=== PATIENT | female | born 1955 | race Caucasian/White ===

== ENCOUNTER 2022-02-27 12:22 | Day surgery (SDC) | payer MEDICARE ==
[~2022-02-27 12:22] MED LIST: SODIUM CHLORIDE 0.9% 1,000 ML IV SCH
[2022-02-27] MEDS ORDERED: SODIUM CHLORIDE 0.9% 1,000 ML IV ONE ×2 (15:15→15:45)
[2022-02-27] MEDS ORDERED: SODIUM CHLORIDE 0.9% 500 ML 500 ML IV ONE (15:17)
[2022-02-27] MEDS ORDERED: HEPARIN SODIUM 1,000 UN/ML (10ML VL) IVP STA (16:17)
[2022-02-27] MEDS ORDERED: FLECAINIDE 50 MG TAB PO STA (16:19)
[2022-02-27] MEDS ORDERED: HEPARIN SODIUM,PORCINE/PF 5,000 UNIT/0.5 ML SYRINGE SQ ONE (16:23)
[2022-02-27 16:35] LABS: Basophils # (A) 0.1 k/uL (0-0.2); Basophils % (A) 1 %; Eosinophils # (A) 0.1 k/uL (0-0.7); Eosinophils % (A) 2 %; HGB 11.5 gm/dL (11.4-16.0); Hypochromasia Slight; Lymphocytes # (A) 1.6 k/uL (1.0-4.8); Lymphocytes % (A) 26 %; MCH 27.5 pg (25.0-35.0); MCV 83.4 fL (80.0-100.0); Mean Platelet Volume 8.3; Monocytes # (A) 0.4 k/uL (0-1.0); Monocytes % (A) 6 %; Neutrophils # (A) 3.9 k/uL (1.3-7.7); Neutrophils % (A) 64 %; Platelet Count 206 k/uL (150-450); RDW 13.5 % (11.5-15.5); WBC 6.1 k/uL (3.8-10.6)
[2022-02-27 16:46] LABS: ALT 19 U/L (4-34); AST 27 U/L (14-36); African American GFR (CKD) >90 (>60 ml/min/1.73 sqM); Alkaline Phosphatase 74 U/L (38-126); Anion Gap 7 mmol/L; Blood Urea Nitrogen 18 mg/dL (7-17); Calcium 8.6 mg/dL (8.4-10.2); Carbon Dioxide 23 mmol/L (22-30); Chloride 109 mmol/L (98-107); Glucose 92 mg/dL (74-99); Non-African American GFR(CKD) 88 (>60 ml/min/1.73 sqM); Potassium 3.7 mmol/L (3.5-5.1); Sodium 139 mmol/L (137-145); Total Bilirubin 0.3 mg/dL (0.2-1.3); Total Protein 6.2 g/dL (6.3-8.2)
[2022-02-27] MEDS: METOPROLOL TARTRATE 50 MG TAB PO SCH ×2 (16:49→19:58)
[2022-02-27] MEDS: APIXABAN 5 MG TAB PO SCH ×2 (16:49→23:52)
--- NOTE | 2022-02-27 16:56 | P.EPCON ---
Electrophysiology Consult - EP Consult Electrophysiology Consult: Please see Dr. Omer's H&P for admission note. Patient's primary care physician is Dr. Becker This is Dr. Thompson dictating a consult on this patient The patient was interviewed and examined IMPRESSION / ASSESSMENT: Patient was brought in for tilt table test initially as an outpatient, referred by Dr. Ramirez for syncope evaluation To is the end of the tilt table test she went into atrial fibrillation with RVR The onset of atrial fibrillation associated with feeling dizzy and nauseous and she passed out At that time, blood pressure was around 80 mmHg systolic and the heart rate was 122 beats a minute Symptomatic paroxysmal atrial fibrillation with RVR with associated syncope Patient has syncope at the onset of atrial fibrillation with RVR 3 episodes of syncope associated with palpitations JONO VASC score is 2 Known paroxysmal atrial fibrillation structurally normal heart Normal LV systolic function without any significant valvular abnormalities Normal myocardial perfusion in November Normal heart rates during sinus rhythm Normal twelve-lead EKG at baseline with normal DC narrow QRS normal ST segments PLAN: She has had at least 3 syncopal spells This time onset of syncope was with A. fib with RVR with associated hypertension She remains in atrial fibrillation with RVR and does not feel well now I will start her on anticoagulation prior to any treatment initiation Flecainide 100 mg by mouth 1, 1 dose of IV heparin 5000 units Start Eliquis 5 mg twice daily Start rate control medications, metoprolol 50 g twice daily Admitted to the hospital until she spontaneously cardioverted to sinus rhythm Consideration for A. fib ablation and hence I'm starting her on anticoagulation at this time I will maintain flecainide 100 mg twice daily until then HPI Patient was brought in for tilt table test To is the end of the tilt table test she started feeling dizzy and nauseous and her blood pressure was 100 mmHg systolic Subsequently she went to atrial fibrillation with RVR with a drop in blood pressure She remains in atrial fibrillation with RVR and does not feel well and hence is being admitted to the hospital I'm initiating anticoagulation and flecainide No history of hypertension dyslipidemia and diabetes stroke no CHF no current myopathy JONO VASC score 2, female gender and age of 65 ROS: No fever chills or rigors, no cough, phlegm or expectoration, no nausea, vomiting or diarrhea, no hematuria, dysuria, no musculoskeletal complaints, no strokes or seizures, no skin lesions. EXAMINATION: On examination her blood pressure in the supine position is 137/74 mmHg pulse rate of around 114 beats a minute irregular Breath sounds are clear no rhonchi no crackles Normal heart sounds but irregular no murmurs Abdomen is soft REVIEW OF LABS, ECG & MEDICAL DATA Normal white count was 6.1, hemoglobin 11.5 normal platelet count Normal electrolytes sodium 139 potassium 3.7 Creatinine 0.7 TSH pending
--- NOTE | 2022-02-27 17:03 | P.EPPROC ---
- EP Procedure Note Electrophysiology Procedure Note: Diagnosis Recurrent syncope Twelve-lead EKG showed in sinus rhythm shows normal [place] narrow QRS normal ST segments normal QT interval Tilt table test per protocol Baseline blood pressure 134/82 mmHg Baseline heart rate 62 beats a minute Patient was tilted upright at an angle of 70 per protocol She was asymptomatic through most of the test After 30 minutes she started to feel nauseous and dizzy there was a dip in her blood pressure at that time and then she went into atrial fibrillation Her blood pressure at that time was around 80 mmHg systolic heart rate is 122 beats a minute Atrial fibrillation was confirmed on telemetry strips and then on the twelve- lead EKG Impression Vasovagal syncope with associated vagally mediated atrial fibrillation Patient has syncope at the onset of atrial fibrillation with RVR However her heart rates are around 120 222 beats a minute at that time No bradycardia no pauses at the onset
[2022-02-27] MEDS: FLECAINIDE 50 MG TAB PO SCH (19:58)
[2022-02-27] MEDS ORDERED: ZOLPIDEM 5 MG TAB PO PRN (20:01)
[2022-02-28] MEDS ORDERED: LEVOTHYROXINE 75 MCG TAB PO SCH (06:30)
[2022-02-28 08:35] VITALS: RESP 17; TEMP 98.9
[2022-02-28] MEDS: FLECAINIDE 50 MG TAB PO SCH (09:21)
[2022-02-28] MEDS: APIXABAN 5 MG TAB PO SCH (09:21)
[2022-02-28] MEDS: METOPROLOL TARTRATE 50 MG TAB PO SCH (09:43)
[2022-02-28 11:27] VITALS: BP 120/74; PULSE 56
--- NOTE | 2022-02-28 23:18 | DS ---
DISCHARGE SUMMARY HOSPITAL COURSE: A 66-year-old lady with a history of recurrent vasovagal syncope, who was sent for a tilt-table test and during that tilt study, had an episode of atrial fibrillation and had a vasovagal event very similar to her baseline events. The plan at this stage is to treat her with flecainide, Eliquis, continue the metoprolol that she is on, and consider atrial fibrillation ablation over the next 2 months. OBJECTIVE: GENERAL: She is comfortable at rest. VITAL SIGNS: Stable. There is no jugular venous distention. CHEST: Reveals good air entry bilaterally. HEART: Reveals first and second heart sounds. No gallop. EXTREMITIES: Did not reveal any edema. Peripheral pulses are felt. EKG shows sinus rhythm, normal axis, normal intervals. Condition at the time of discharge is as described above. MEDICATIONS ON DISCHARGE: Include, 1. Lopressor 50 b.i.d. 2. Tambocor 100 b.i.d. 3. Eliquis 5 b.i.d. 4. Prilosec. 5. Levothyroxine. FOLLOWUP: The patient will be followed up in my office in 3 weeks' time. MMODL / IJN: [id number] /
== END 2022-02-28 12:14 | disposition home or self-care (01) ==
LOC: CATHEP 12:22 → 3SCARD 16:28 → CATHEP 02-28 12:14
PROVIDERS: ATTEND Internal Medicine Clinical Cardiac Electrophysiology
DX: I48.0 Paroxysmal atrial fibrillation (principal); I44.7 Left bundle-branch block, unspecified; U09.9 Post COVID-19 condition, unspecified; Z79.899 Other long term (current) drug therapy; Z82.49 Family history of ischemic heart disease and other diseases of the circulatory system
CPT/HCPCS: 93660; 80053; 84443; 85025; J1644

== ENCOUNTER → 2022-03-31 | Outpatient (CLI) | payer MEDICARE ==
[2022-03-31 17:53] LABS: HCT 37.6 % (37.2-46.3); HGB 11.5 g/dL (12.0-15.0); MCH 25.4 pg (27.0-32.0); MCHC 30.6 g/dL (32.0-37.0); Mean Platelet Volume 10.7 fL (9.5-12.2); NRBC Per 100 WBC 0 /100 WBCS (0.0-0.0); Platelet Count 262 X 10*3/uL (140-440); RBC 4.53 X 10*6/uL (4.10-5.20); RDW 13.9 % (11.5-14.5); WBC 5.71 X 10*3/uL (4.50-10.00)
[2022-03-31 18:00] LABS: African American GFR (CKD) 74.2 (60.0-200.0); Anion Gap 9.1 mmol/L (10.00-18.00); Blood Urea Nitrogen 17.7 mg/dL (9.0-27.0); Carbon Dioxide 27.7 mmol/L (20.0-27.5); Potassium 4.2 mmol/L (3.5-5.5)
== END | disposition home or self-care (01) ==
LOC: LABPAT 13:10
PROVIDERS: ATTEND Internal Medicine Clinical Cardiac Electrophysiology
DX: Z01.812 Encounter for preprocedural laboratory examination (principal); I48.0 Paroxysmal atrial fibrillation; R55 Syncope and collapse
CPT/HCPCS: 36415; 80051; 82565; 84520; 85027

== ENCOUNTER 2022-04-03 10:14 | Day surgery (SDC) | payer MEDICARE ==
[2022-03-31 11:49] VITALS: BMI 32.3
[~2022-04-03 10:14] MED LIST changes: +LACTATED RINGERS 1,000 ML IV SCH
[2022-04-03] MEDS ORDERED: HEPARIN SODIUM,PORCINE 10,000 UNIT/ML 1 ML VIAL ONE (14:54)
[2022-04-03] MEDS ORDERED: ISOPROTERENOL 250 MCG/1.25 ML SYR IV ONE (14:54)
[2022-04-03] MEDS ORDERED: PROPOFOL 10 MG/ML 20 ML VIAL IV ONE (14:54)
[2022-04-03] MEDS ORDERED: PHENYLEPHRINE-0.9% NACL SYG 1,000 MCG/10 ML SYRINGE ONE (14:54)
[2022-04-03] MEDS ORDERED: ONDANSETRON 4 MG/2 ML VIAL ONE (14:54)
[2022-04-03] MEDS ORDERED: MIDAZOLAM 2 MG/2 ML VIAL ONE (14:54)
[2022-04-03] MEDS ORDERED: fentaNYL (PF) 50 MCG/ML 2 ML AMP ONE (14:54)
[2022-04-03] MEDS ORDERED: DEXAMETHASONE SOD PHOSPHATE 10 MG/ML 1 ML VIAL ONE (14:54)
[2022-04-03] MEDS ORDERED: SUCCINYLCHOLINE CHLORIDE 200 MG/10 ML VIAL IV ONE (14:54)
--- NOTE | 2022-04-03 14:58 | P.HPCAR ---
History of Present Illness This is Dr. Thompson dictating an H/P on this patient The patient was interviewed and examined IMPRESSION / ASSESSMENT: Recurrent atrial fibrillation, paroxysmal associated with vasovagal spells A. fib RVR, vagally mediated Recurrent syncope JONO VASC who is to Normal LV function on 2-D echo PLAN: Pulmonary vein isolation/A. fib ablation/septal ablation along the SVC and the right atrium Continue ELIQUIS HPI Patient is stable from a cardiac vascular standpoint. She's had no further episodes of atrial fibrillation in the last 2-3 weeks as of syncope She does get palpitations but these are brief, in the last few weeks ROS: No fever chills or rigors, no cough, phlegm or expectoration, no nausea, vomiting or diarrhea, no hematuria, dysuria, no musculoskeletal complaints, no strokes or seizures, no skin lesions. EXAMINATION: Pulse rate in the 60s and 70s Blood pressure 120/74 mmHg No JVD and no current bruits Normal heart sounds normal S1 normal S2 Clear lungs no rhonchi no crackles Normal extremity edema Soft abdomen nontender REVIEW OF LABS, ECG & MEDICAL DATA twelve-lead EKG shows sinus mechanism normal [place] mammograms normal ST segments hematocrit 37.6 Normal sodium and potassium Normal renal function creatinine 0.9 Normal TSH Past Medical History Past Medical History: Atrial Fibrillation, GERD/Reflux, Syncope, Thyroid Disorder Additional Past Medical History / Comment(s): Barretts esophagus., covid 12/24/21. passed out and stopped breathing for brief period per pt 02/14/22., See Cardiology H & P. History of Any Multi-Drug Resistant Organisms: None Reported Past Surgical History: Appendectomy, Section, Hernia Repair, Hysterectomy, Joint Replacement, Tonsillectomy Additional Past Surgical History / Comment(s): lt knee replacement, thyroid removed., uterine fibroids removed., umbilical hernia repair. ,arthroscopic procedure on both knees, Thyroidectomy (goiter) Past Anesthesia/Blood Transfusion Reactions: No Reported Reaction Additional Past Anesthesia/Blood Transfusion Reaction / Comment(s): no blood transfusions Past Psychological History: Anxiety Smoking Status: Never smoker Past Alcohol Use History: Occasional Additional Drug Use History / Comment(s): past gummie use pt aware not to use 24 hrs before procedure. - Past Family History Mother Additional Family Medical History / Comment(s): vascular stroke. at 60yrs. smoker, dementia Father Additional Family Medical History / Comment(s): parkinsons, alzheimer Results Current Medications Generic Name Dose Route Start Last Admin Trade Name Freq PRN Reason Stop Dose Admin Lactated Ringer's 1,000 mls @ 20 mls/hr 04/03/22 05:57 Lactated Ringers IV 05/03/22 05:58 .Q24H ROSANGELA Sodium Chloride 1,000 mls @ 20 mls/hr 04/03/22 05:57 04/03/22 10:43 Saline 0.9% IV 05/03/22 05:58 0 mls .Q24H ROSANGELA Administration
[2022-04-03] MEDS ORDERED: HEPARIN SOD,PORK IN 0.45% NACL 25,000 UNIT in 0.45% NACL 1 250ML.BAG IV ONE (15:30)
[2022-04-03] MEDS ORDERED: HEPARIN SODIUM (1,000 UNIT/ML) 1,000 UNIT in SODIUM CHLORIDE 0.9% 1,000 ML IRRIGATION ONE (15:31)
[2022-04-03] MEDS ORDERED: LIDOCAINE 1% INJ 10MG/ML (30 ML VIAL-PF) SQ ONE (15:39)
[2022-04-03] MEDS ORDERED: LACTATED RINGERS 1,000 ML IV ONE (18:00)
--- NOTE | 2022-04-03 19:39 | P.EPPROC ---
- EP Procedure Note Electrophysiology Procedure Note: Extended procedure duration Ablation of arrhythmia focus in the low SVC/upper right atrial septum on the septal aspect with good contact force and power and troponins impedance Successful isolation of all pulmonary veins. The arrhythmogenic vein appeared to be the left-sided veins on the left superior Short bursts of atrial fibrillation associated with pauses during or after cryoablation of the right superior. This was a 92nd lesion because of esophageal coaling Cryoablation was performed once again and thereafter no atrial fibrillation was induced during thaw Common left-sided pulmonary veins with difficult angulation but finally a complete isolation of the common os Right superior pulmonary vein was large and multiple lesions were applied around the antrum with complete isolation Right inferior pulmonary vein was very posteriorly located and required multiple attempts at good positioning of the balloon Successfully isolated Patient had a right middle pulmonary vein that resulted in crosstalk between the right middle and the right superior pulmonary veins with dissociated signals These dissociated signals were completely isolated with a separate isolation of the right middle pulmonary vein At the end of the procedure all pulmonary veins were completely isolated the level The patient's IVC had a very posterior entry into the lower right atrium, directing US to is the septum Placement of intracardiac echo catheter was difficult on account of this angulation Patient's LV function is normal Pericardium over the left ventricle was thickened without effusion Transseptal catheterization was difficult on account of a very stiff in the atrial septum/fossa ovalis It took multiple attempts to pass the wires and sheaths across this thin but stiff fossa ovalis
--- NOTE | 2022-04-03 19:46 | P.EPPROC ---
- EP Procedure Note Electrophysiology Procedure Note: PROCEDURE A. fib ablation/PVI/SVC and right atrial septal ablation DIAGNOSIS Atrial fibrillation, symptomatic, refractory to therapy Vagally mediated atrial fibrillation Recurrent vasovagal syncope RESULT No left atrial appendage mass seen on intracardiac echo Mildly thickened pericardium over the left ventricle Successful A. fib ablation/pulmonary vein isolation of all veins using cryo- ablation Common left-sided veins, presence of a large right middle vein Complete entrance block in all 5 veins confirmed including right middle pulmonary vein Right atrial septal an SCC ablation with DC shortening noted, around 190 ms from a baseline of 206 ms No evidence for phrenic nerve injury Left sided pulmonary veins especially left superior pulmonary vein was the likely arrhythmogenic focus Esophageal deflection YES , extreme left-sided esophagus, very tortuous PROCEDURE DETAILS Patient was brought to the EP lab in a fasting state after obtaining written informed consent. Procedure performed under general anesthesia Esophagus was intubated. Esophageal temperature monitoring with circa catheter. Esophageal deflection with an endoscope to avoid hypothermia of the esophagus. After initial muscle relaxant use, muscle relaxants were not given thereafter in order to assess phrenic nerve during procedure. Patient prepped and draped as per protocol Cryo ablation-set up with standard preparation of the cryoablation tools done. Femoral Venous access obtained on the right and left groins and sheaths placed Diagnostic catheters for the high right atrium, phrenic nerve stimulation and pacing, His bundle, coronary sinus placed Intracardiac echo catheter placed. Long sheath placed in the right atrium Left and right transseptal catheterization performed under intracardiac echo guidance. Intravenous heparin with aCT above 300 Later, catheter positioning and balloon positioning in the left atrium and pulmonary veins, under intracardiac echo guidance Diagnostic EP study with coronary sinus pacing and recording Baseline measurements: Sinus cycle length Thursday rate 90 ms, DC interval 206 ms, QRS 97 ms and QT 373 ms Shortening of the DC interval noted during SVC/right atrial septal ablation AH interval 50 ms, HV interval 60 ms Sinus recovery times at 600, 504 100 ms were 1291, 1314 and 1417 ms Corrector sinus recovery times abnormal Burst stimulation was performed on Isuprel, high-dose AV node Wenckebach block on Isuprel less than 250 ms Transseptal catheterization performed RA pressure 11/3/7 LA pressure 21/6/13 Transseptal catheterization performed with standard sheath. The cryoablation sheath was then placed with an over the wire exchange without any acute complications. The cryoablation balloon was placed in the office of each pulmonary vein and all 4 pulmonary veins were isolated. IV dye was injected to confirm occlusion. Goal: achieve complete occlusion of the pulmonary vein, achieve -30 degrees C at 30 seconds and achieve -40 degrees C at 60 seconds and a time to effect of less than 60 seconds. If not, the balloon was repositioned to obtain this result After completion of Cryoblation with durations from 180-240 seconds, entrance block was confirmed with the Attain circular catheter in a roving fashion around the antrum of the pulmonary veins Phrenic nerve pacing was performed from the SVC, right innominate vein area and diaphragm voltage was monitored. Diaphragmatic contractions were also monitored manually for strength of contraction. At the end of the procedure the Achieve catheter was once again used to check for entrance block Phrenic nerve stimulation was performed to confirm diaphragmatic stimulation the end of the procedure Cine fluoroscopy was performed at the very end of the procedure to confirm movement of both diaphragms with inspiration and expiration At the end of the procedure the patient was extubated Venous sheaths were removed and hemostasis assured with a closure device PROCEDURES PERFORMED Diagnostic EP study CS pacing and recording Left and right transseptal catheterization Catheter the mapping of the tachycardia Intracardiac echocardiography Pulmonary vein isolation with transseptal and comprehensive EPS, [id number] Drug infusion, +[id number] Linear ablation, right atrium, +[id number] Extended procedure duration as described in separate note
--- NOTE | 2022-04-03 19:48 | P.PRLE ---
RE: Vandana Monaco Dear Ritchie Ross underwent successful AF ablation for vagally mediated atrial fibrillation She should continue anticoagulation for at least 3 months post ablation Thank you for entrusting me with the care of the patient Warm regards Sincerely Tyrone Thompson
[2022-04-03] MEDS ORDERED: ALPRAZolam 0.25 MG TAB PO PRN (19:49)
[2022-04-03] MEDS ORDERED: ACETAMINOPHEN TAB 325 MG TAB PO PRN (19:50)
[2022-04-03] MEDS ORDERED: ONDANSETRON 4 MG/2 ML VIAL IVP ONE (19:59)
[2022-04-03] MEDS ORDERED: ACETAMINOPHEN IV (For NPO) 1,000 MG in EMPTY BAG 1 BAG IVPB ONE (21:00)
[2022-04-03] MEDS: FLECAINIDE 50 MG TAB PO SCH (21:09)
[2022-04-03] MEDS: APIXABAN 5 MG TAB PO SCH (21:09)
[2022-04-04] MEDS ORDERED: LEVOTHYROXINE SODIUM 175 MCG PO SCH (06:30)
[2022-04-04] MEDS: PANTOPRAZOLE 40 MG TABLET PO SCH (09:38)
[2022-04-04] MEDS: FLECAINIDE 50 MG TAB PO SCH (09:38)
[2022-04-04] MEDS: APIXABAN 5 MG TAB PO SCH ×2 (09:38→21:10)
[2022-04-04] MEDS ORDERED: SODIUM CHLORIDE 0.9% 1,000 ML IV ONE (09:41)
--- NOTE | 2022-04-04 09:42 | P.DS ---
Providers Attending physician: Tyrone Thompson Primary care physician: Ritchie Velez [facility] Hospital Course: The patient is a 66-year-old female who underwent A. fib ablation yesterday with Dr. Thompson. Procedure went well with no complications. She had successful pulmonary vein isolation, as well as SVC and right atrial septal ablation. The patient was interviewed and examined lying comfortably in bed. She states she did feel a little dizzy earlier this morning, however she had yet deep break fast. Her blood pressure is in the 90s over 50s. No chest pain or chest pressure. No difficulty breathing. Mildly sore throat. GENERAL: Well-appearing, well-nourished and in no acute distress. NECK: Supple without JVD or thyromegaly. LUNGS: Breath sounds clear to auscultation bilaterally. Respiration equal and unlabored. No wheezes, rales or rhonchi. HEART: Regular rate and rhythm without murmurs, rubs or gallops. S1 and S2 heard. EXTREMITIES: Normal range of motion, no edema. No clubbing or cyanosis. Peripheral pulses intact and strong. Surgical sites have small amount of bleeding. No hematoma. IMPRESSION: Paroxysmal atrial fibrillation Vasovagal syncope Status post home and he vein isolation and SVC ablation Evidence of pericarditis, likely secondary to COVID-19 infection in late 2021 PLAN: Reduce flecainide 50 mg twice daily Colchicine outpatient for one month as she had pericardial thickening noted with ICE Follow-up with primary eligibility examiner in 1 week I am dictating on behalf of Dr Tyrone Thompson's history/physical and assessment/plan. Plan - Discharge Summary Discharge Rx Participant: No New Discharge Prescriptions: No Action Levothyroxine Sodium [Levoxyl] 175 mcg PO DAILY Erasmo/D3/Mag11/Zinc/Lean Manufacturing Coordinator/Braden/Bor [Caltrate 600+D Plus Tablet] 1 each PO DAILY Colchicine 0.6 mg PO DAILY Flecainide [Tambocor] 50 mg PO Q12HR Omeprazole Magnesium [PriLOSEC OTC] 20 mg PO DAILY ALPRAZolam [Xanax] 0.25 mg PO TID PRN PRN Reason: Anxiety Apixaban [Eliquis] 5 mg PO BID #60 tab Zolpidem [Ambien] 5 mg PO HS PRN PRN Reason: Insomnia Discharge Medication List ALPRAZolam [Xanax] 0.25 mg PO TID PRN 02/26/22 [History] Erasmo/D3/Mag11/Zinc/Lean Manufacturing Coordinator/Braden/Bor [Caltrate 600+D Plus Tablet] 1 each PO DAILY 02/26/22 [History] Levothyroxine Sodium [Levoxyl] 175 mcg PO DAILY 02/26/22 [History] Omeprazole Magnesium [PriLOSEC OTC] 20 mg PO DAILY 02/26/22 [History] Apixaban [Eliquis] 5 mg PO BID #60 tab 02/28/22 [Rx] Zolpidem [Ambien] 5 mg PO HS PRN 03/31/22 [History] Colchicine 0.6 mg PO DAILY 04/04/22 [History] Flecainide [Tambocor] 50 mg PO Q12HR 04/04/22 [History] Follow up Appointment(s)/Referral(s): Danny Omer MD [STAFF PHYSICIAN] - 1 Week
[2022-04-04] MEDS ORDERED: FLECAINIDE 50 MG TAB PO SCH (10:00)
[2022-04-04] MEDS: COLCHICINE 0.6 MG EACH PO SCH (11:50)
[2022-04-04] MEDS: SODIUM CHLORIDE 0.9% 1,000 ML IV SCH (18:29)
[2022-04-05] MEDS ORDERED: LEVOTHYROXINE 88 MCG TAB PO SCH (00:38)
[2022-04-05 07:28] VITALS: RESP 16; TEMP 98.1
[2022-04-05 07:54] LABS: Basophils # (A) 0.1 k/uL (0-0.2); Basophils % (A) 1 %; Eosinophils # (A) 0.1 k/uL (0-0.7); Eosinophils % (A) 2 %; HCT 32.8 % (34.0-46.0); HGB 10.1 gm/dL (11.4-16.0); Hypochromasia Marked; Lymphocytes % (A) 32 %; MCHC 30.7 g/dL (31.0-37.0); MCV 84.7 fL (80.0-100.0); Mean Platelet Volume 8.5; Monocytes # (A) 0.4 k/uL (0-1.0); Monocytes % (A) 6 %; Neutrophils # (A) 3.6 k/uL (1.3-7.7); Neutrophils % (A) 58 %; Platelet Count 178 k/uL (150-450); RBC 3.87 m/uL (3.80-5.40); RDW 13.8 % (11.5-15.5); WBC 6.2 k/uL (3.8-10.6)
[2022-04-05] MEDS: COLCHICINE 0.6 MG EACH PO SCH (08:25)
[2022-04-05] MEDS: APIXABAN 5 MG TAB PO SCH (08:26)
[2022-04-05] MEDS: FLECAINIDE 50 MG TAB PO SCH (08:26)
[2022-04-05] MEDS: PANTOPRAZOLE 40 MG TABLET PO SCH (08:26)
[2022-04-05] MEDS: SODIUM CHLORIDE 0.9% 1,000 ML IV SCH (13:53)
[2022-04-05 14:42] VITALS: BP 160/78; PULSE 68
--- NOTE | 2022-04-05 15:24 | P.DS ---
Providers Date of admission: 04/03/2022 Attending physician: Tyrone Thompson Primary care physician: Ritchie Velez [facility] Course: The patient is a 66-year-old female who underwent A. fib ablation on 04/03/[address] Thompson. Overall procedure was unremarkable and had no postoperative complications. She had successful pulmonary vein isolation, as well as SVC and right atrial septal ablation. She was due to be discharged yesterday, however she had 2 dizzy spells, one of which caused visual disturbances. EKG and telemetry showed no arrhythmia at that time. Blood pressure was stable. Overnight she had no further episodes. She has been up ambulating around her room. No chest pain or chest pressure. No dyspnea or orthopnea. GENERAL: Well-appearing, well-nourished and in no acute distress. NECK: Supple without JVD or thyromegaly. LUNGS: Breath sounds clear to auscultation bilaterally. Respiration equal and unlabored. No wheezes, rales or rhonchi. HEART: Regular rate and rhythm without murmurs, rubs or gallops. S1 and S2 heard. EXTREMITIES: Normal range of motion, no edema. No clubbing or cyanosis. Peripheral pulses intact and strong. Surgical sites showed no evidence of drainage or infection. No hematoma. IMPRESSION: Paroxysmal atrial fibrillation Vasovagal syncope Status post home and he vein isolation and SVC ablation Evidence of pericarditis, likely secondary to COVID-19 infection in late 2021 PLAN: Patient may be discharged from the cardiac standpoint Continue flecainide 50 mg twice daily Colchicine outpatient for one month as she had pericardial thickening noted with ICE Follow-up with primary medical billing associate in 1 week I am dictating on behalf of Dr Tyrone Thompson's history/physical and assessment/plan. Plan - Discharge Summary Discharge Rx Participant: No New Discharge Prescriptions: No Action Levothyroxine Sodium [Levoxyl] 175 mcg PO DAILY Erasmo/D3/Mag11/Zinc/Student Dean/Braden/Bor [Caltrate 600+D Plus Tablet] 1 each PO DAILY Colchicine 0.6 mg PO DAILY Flecainide [Tambocor] 50 mg PO Q12HR Omeprazole Magnesium [PriLOSEC OTC] 20 mg PO DAILY ALPRAZolam [Xanax] 0.25 mg PO TID PRN PRN Reason: Anxiety Apixaban [Eliquis] 5 mg PO BID #60 tab Zolpidem [Ambien] 5 mg PO HS PRN PRN Reason: Insomnia Discharge Medication List ALPRAZolam [Xanax] 0.25 mg PO TID PRN 02/26/22 [History] Erasmo/D3/Mag11/Zinc/Student Dean/Braden/Bor [Caltrate 600+D Plus Tablet] 1 each PO DAILY 02/26/22 [History] Levothyroxine Sodium [Levoxyl] 175 mcg PO DAILY 02/26/22 [History] Omeprazole Magnesium [PriLOSEC OTC] 20 mg PO DAILY 02/26/22 [History] Apixaban [Eliquis] 5 mg PO BID #60 tab 02/28/22 [Rx] Zolpidem [Ambien] 5 mg PO HS PRN 03/31/22 [History] Colchicine 0.6 mg PO DAILY 04/04/22 [History] Flecainide [Tambocor] 50 mg PO Q12HR 04/04/22 [History] Follow up Appointment(s)/Referral(s): Danny Omer MD [STAFF PHYSICIAN] - 04/10/22 4:00 pm (april 10 4)
--- NOTE | 2022-04-05 18:35 | CA ---
Transthoracic Echo Report Name: Vandana Monaco Age: 66 Gender: F : 1955 Exam Date: 04/05/2022 10:08 Exam Location: [place] [facility] Ht (in): 66 Wt (lb): 200 Ordering Physician: Tyrone Thompson MD ([id number]) Attending/Referring Phys: Master Data Analyst Crystal Jones RDCS Procedure CPT: Indications: vasovagel symptoms Cardiac Hx: Technical Quality: Fair Contrast 1: Total Dose (mL): Contrast 2: Total Dose (mL): MEASUREMENTS (Male / Female) Normal Values 2D ECHO LV Diastolic Diameter PLAX 3.9 cm 4.2 - 5.9 / 3.9 - 5.3 cm LV Systolic Diameter PLAX 2.0 cm IVS Diastolic Thickness 1.4 cm 0.6 - 1.0 / 0.6 - 0.9 cm LVPW Diastolic Thickness 1.3 cm 0.6 - 1.0 / 0.6 - 0.9 cm LV Relative Wall Thickness 0.7 FINDINGS Left Ventricle Moderately increased left ventricular wall thickness. Normal left ventricular systolic function with no obvious regional wall motion abnormalities. Left ventricular ejection fraction is estimated at 55-60 %. Right Ventricle Right Atrium Left Atrium Mitral Valve Aortic Valve Tricuspid Valve Pulmonic Valve Pericardium No pericardial effusion. Aorta CONCLUSIONS Normal LV systolic function No intracardiac masses No pericardial effusion Patient is status post AF ablation Previewed by: Dr. Tyrone Thompson MD (Electronically Signed) Final Date: 05 April 2022 18:34
== END 2022-04-05 16:47 | disposition home or self-care (01) ==
LOC: CATHEP 10:14 → 6NMEDSUR 19:22 → CATHEP 04-05 16:47
PROVIDERS: ATTEND Internal Medicine Clinical Cardiac Electrophysiology
DX: I48.0 Paroxysmal atrial fibrillation (principal); K21.9 Gastro-esophageal reflux disease without esophagitis; E07.9 Disorder of thyroid, unspecified; F41.9 Anxiety disorder, unspecified; Z87.19 Personal history of other diseases of the digestive system; Z90.89 Acquired absence of other organs; Z98.890 Other specified postprocedural states; Z90.710 Acquired absence of both cervix and uterus; Z96.659 Presence of unspecified artificial knee joint; Z90.49 Acquired absence of other specified parts of digestive tract; Z86.59 Personal history of other mental and behavioral disorders; Z79.899 Other long term (current) drug therapy
CPT/HCPCS: 93308; 93623; 93656; 93657; 86900; 86901; 85025; 86850; C1894 ×2; C1769 ×4; C1760; C1730 ×2; C1759; C1893; C1733; C1766; C1732; J2405; J2001; J1644 ×2; J0131